=== PATIENT | male | born 1960 | race Two or more races ===

== ENCOUNTER 2017-08-22 05:56 | Emergency (ER) | payer BC ==
[~2017-08-22] VITALS: Ht 160 cm; Wt 63.5 kg
[2017-08-22 06:00] VITALS: BP 133/91
== END 2017-08-22 07:29 | disposition home or self-care (01) ==
LOC: ER 05:57
DX: R21 Rash and other nonspecific skin eruption (principal)

== ENCOUNTER 2019-04-07 08:37 | Inpatient (IN) | payer BC ==
[~2019-04-07] VITALS: Ht 170.2 cm; Wt 97.6 kg
[2019-04-07] MEDS ORDERED: SODIUM CHLORIDE 0.9% 1,000 ML IV ONE ×2 (08:59)
[2019-04-07] MEDS ORDERED: MORPHINE SULFATE 4 MG/ML SYR/VIAL IV ONE (09:00)
[2019-04-07] MEDS ORDERED: ONDANSETRON HCL 4 MG/2 ML VIAL IV ONE (09:00)
[2019-04-07 09:24] LABS: Basophils # (auto) 0 uL; Basophils % (auto) 0.4 % (0.0-2.0); Eosinophils # (auto) 0 uL; Eosinophils % (auto) 0.4 % (0.0-7.0); Hematocrit 44.4 % (41.0-53.0); Hemoglobin 15.5 g/dL (13.5-17.5); Lymphocytes # (auto) 0.8 uL; Lymphocytes % (auto) 7.7 % (10.0-50.0); Mean Corpuscular Hgb Conc. 34.8 g/dL (32.0-36.0); Mean Corpuscular Volume 89.3 fL (80.0-100.0); Monocytes # (auto) 0.6 uL; Monocytes % (auto) 5.8 % (0.0-12.0); Neutrophils # (auto) 9.4 uL; Neutrophils % (auto) 85.7 % (37.0-80.0); Platelet Count (auto) 236 10^3/uL (140-450); Red Blood Cells 4.98 10^6/uL (4.5-5.90); Red Cell Distribution Width 14.6 % (11.8-14.3); White Blood Cell 10.9 10^3/uL (4.4-10.8)
[2019-04-07 09:37] LABS: INR 0.97 (0.9-1.15); Partial Thromboplastin Time 27.1 sec (23.64-32.05)
[2019-04-07 09:40] LABS: Urine Bacteria NONE SEEN /hpf (None Seen); Urine Blood Negative /uL (Negative); Urine Specific Gravity 1.028 (1.001-1.035); Urine WBC <1 /hpf (0 - 3)
[2019-04-07 09:44] LABS: Albumin 3.9 g/dL (3.4-5.0); Calcium 9.2 mg/dL (8.5-10.1); Potassium 4.2 mmol/L (3.5-5.1)
[2019-04-07 09:49] LABS: BUN/Creatinine Ratio 15.5; Bilirubin, Total 1.4 mg/dL (0.2-1.0)
[2019-04-07] MEDS ORDERED: cefTRIAXone 1GM/50ML D5W 50 ML IV ONE (10:30)
[2019-04-07] MEDS ORDERED: MORPHINE SULF INJ 2 MG/ML SYRINGE 1ML IV PRN ×2 (10:45)
[2019-04-07] MEDS ORDERED: NITROGLYCERIN 0.4 MG SL TAB SL PRN (10:45)
[2019-04-07] MEDS ORDERED: ACETAMINOPHEN 500 MG TAB PO PRN (10:45)
[2019-04-07] MEDS ORDERED: ONDANSETRON HCL 4 MG/2 ML VIAL IV PRN (10:45)
[2019-04-07] MEDS: SODIUM CHLORIDE 0.9% 1,000 ML IV SCH ×3 (13:11→21:27)
[2019-04-07] MEDS: HYDROcodone-ACET 5/325MG TAB PO PRN (16:21)
[2019-04-07] MEDS: TAMSULOSIN HYDROCHLORIDE 0.4 MG CAP PO SCH (17:29)
[2019-04-07 17:40] VITALS: BP 149/75
[2019-04-07] MEDS: KETOROLAC TROMETH 30 MG/ML 1ML VIAL IV PRN (18:59)
[2019-04-07] MEDS ORDERED: MANNITOL FTV 25% 12.5 GM/50 ML 50 ML IV ONE (22:00)
[2019-04-07 22:07] VITALS: BP 102/60
[2019-04-08 05:29] VITALS: BP 113/69
[2019-04-08] MEDS: HYDROcodone-ACET 5/325MG TAB PO PRN ×2 (05:35→22:27)
[2019-04-08 05:44] LABS: Basophils # (auto) 0 uL; Basophils % (auto) 0.4 % (0.0-2.0); Eosinophils # (auto) 0.1 uL; Eosinophils % (auto) 0.8 % (0.0-7.0); Hematocrit 37.5 % (41.0-53.0); Lymphocytes # (auto) 1.1 uL; Lymphocytes % (auto) 12.1 % (10.0-50.0); Mean Corpuscular Hgb Conc. 34.5 g/dL (32.0-36.0); Mean Corpuscular Volume 89.8 fL (80.0-100.0); Monocytes # (auto) 0.7 uL; Monocytes % (auto) 7.6 % (0.0-12.0); Neutrophils # (auto) 7.3 uL; Neutrophils % (auto) 79.1 % (37.0-80.0); Platelet Count (auto) 177 10^3/uL (140-450); Red Blood Cells 4.18 10^6/uL (4.5-5.90); Red Cell Distribution Width 14.3 % (11.8-14.3); White Blood Cell 9.3 10^3/uL (4.4-10.8)
[2019-04-08 05:54] LABS: BUN/Creatinine Ratio 15.8; Potassium 4.4 mmol/L (3.5-5.1)
[2019-04-08] MEDS: SODIUM CHLORIDE 0.9% 1,000 ML IV SCH ×3 (06:54→21:20)
[2019-04-08 09:00] VITALS: BP 138/76
[2019-04-08] MEDS: cefTRIAXone 1GM/50ML D5W 50 ML IV SCH (09:17)
[2019-04-08] MEDS: FAMOTIDINE 20 MG TAB PO SCH ×2 (09:18→09:24)
[2019-04-08] MEDS: KETOROLAC TROMETH 30 MG/ML 1ML VIAL IV PRN ×2 (09:18→18:47)
[2019-04-08 13:00] VITALS: BP 122/72
[2019-04-08 17:00] VITALS: BP 134/75
[2019-04-08] MEDS: TAMSULOSIN HYDROCHLORIDE 0.4 MG CAP PO SCH (18:00)
[2019-04-08] MEDS: LACTULOSE 20Gm/30ML SOLN PO PRN (18:47)
[2019-04-08 21:30] VITALS: BP 130/71
[2019-04-09] MEDS: KETOROLAC TROMETH 30 MG/ML 1ML VIAL IV PRN ×2 (03:46→09:40)
[2019-04-09 05:39] VITALS: BP 130/63
[2019-04-09 09:00] VITALS: BP 123/67
[2019-04-09] MEDS: FAMOTIDINE 20 MG TAB PO SCH (09:39)
[2019-04-09] MEDS: cefTRIAXone 1GM/50ML D5W 50 ML IV SCH (09:39)
[2019-04-09] MEDS: LACTULOSE 20Gm/30ML SOLN PO PRN (09:40)
[2019-04-09] MEDS: SODIUM CHLORIDE 0.9% 1,000 ML IV SCH (09:40)
[2019-04-09 13:00] VITALS: BP 146/81
== END 2019-04-09 14:15 | disposition home or self-care (01) | DRG 694 ==
LOC: ER 08:38 → OVERFLOW 08:39 → WEST WING 14:25
PROVIDERS: ADMIT Nurse Practitioner Acute Care; ATTEND Internal Medicine
DX: N13.2 Hydronephrosis with renal and ureteral calculous obstruction (principal); N18.3 Chronic kidney disease, stage 3 (moderate); K80.20 Calculus of gallbladder without cholecystitis without obstruction; K40.90 Unilateral inguinal hernia, without obstruction or gangrene, not specified as recurrent; E11.22 Type 2 diabetes mellitus with diabetic chronic kidney disease; K57.30 Diverticulosis of large intestine without perforation or abscess without bleeding; E66.01 Morbid (severe) obesity due to excess calories; Z90.49 Acquired absence of other specified parts of digestive tract; Z79.899 Other long term (current) drug therapy; Z68.33 Body mass index [BMI] 33.0-33.9, adult
CPT/HCPCS: 36415; 71045; 74018; 74176; 80048; 80053; 81001; 82962; 85025; 85610; 85730; 87086; G0378; J0696; J1885